=== PATIENT | male | born 1955 | race Caucasian/White ===

== ENCOUNTER 2022-01-19 14:55 | Inpatient (IN) | payer MEDICARE, OTHER ==
[2022-01-19] MEDS ORDERED: Haloperidol Lactate 5 MG/ML VIAL ONE (15:07)
[2022-01-19 15:52] LABS: #Basophils 0.1 thou/uL (0.0-0.2); #Eosinphils 0.1 thou/uL (0.0-0.7); #Lymphocytes 2.8 thou/uL (1.20-3.40); #Monocytes 0.9 thou/uL (0.11-0.59); #Neutrophils 6.2 thou/uL (1.40-6.50); %Basophils 0.7 % (0.0-1.0); %Eosinophils 1.1 % (0.0-10.0); %Lymphocytes 27.7 % (21.0-51.0); %Monocytes 8.7 % (0.0-10.0); %Neutrophils 61.8 % (42.0-75.0); Hemoglobin 16.9 g/dL (14.0-18.0); Mean Corpuscular HGB CONC 32.6 g/dL (32.0-36.0); Mean Corpuscular Hemoglobin 29.6 pg (27.0-31.0); Mean Corpuscular Volume 90.8 fL (78.0-98.0); Mean Platelet Volume 8.5 fL (7.4-10.4); Platelet Count 250 thou/uL (130-400); RBC Distribution Width 14.1 % (11.5-14.5); White Blood Cell (WBC) Count 10.1 thou/uL (4.8-10.8)
[2022-01-19 16:01] LABS: Amphetamine Detected (NotDetected); Barbiturates Screen Not Detected (NotDetected); Benzodiazepine Screen Not Detected (NotDetected); Cocaine Metabolite Screen Not Detected (NotDetected); Methadone Not Detected (NotDetected); Methamphetamine Detected (NotDetected); Opiate Screen Not Detected (NotDetected); Oxycodone Screen Not Detected (NotDetected); Phencyclidine (PCP) Not Detected (NotDetected); THC/Cannabinoid Screen Not Detected (NotDetected); Tricyclic Screen Not Detected (NotDetected)
[2022-01-19 16:06] LABS: ALT (SGPT) 138 U/L (8-55); AST (SGOT) 159 U/L (5-34); Acetaminophen Less than 10.0 mcg/mL (10.0-30.0); Albumin 4.6 g/dL (3.4-4.8); Alcohol Less than 10 mg/dL (Less than 10); Alkaline Phosphatase 146 U/L (40-110); Anion Gap 30 mmol/L (10-20); BUN (Urea Nitrogen) 20 mg/dL (8.4-25.7); Bilirubin, Total 1.3 mg/dL (0.2-1.2); CK (CPK) 267 U/L (30-200); Calc. Creatinine Clearance 0 mL/min (70-130); Calcium 10.5 mg/dL (7.8-10.44); Carbon Dioxide 13 mmol/L (23-31); Chloride 107 mmol/L (98-107); Estimated GFR 25; Glucose 141 mg/dL (80-115); Lipase 83 U/L (8-78); Potassium 4.3 mmol/L (3.5-5.1); Protein, Total 9.6 g/dL (5.8-8.1); Salicylate Less than 8.0 mg/dL (15.0-30.0); Sodium 146 mmol/L (136-145)
[2022-01-19 16:47] LABS: CKMB 8.1 ng/mL (0-6.6)
[2022-01-19] MEDS ORDERED: Cefepime 2 GM in Sodium Chloride 0.9% 100 ML IVPB SCH (17:28)
[2022-01-19] MEDS ORDERED: Ondansetron ODT 4 MG TAB PO PRN (17:30)
[2022-01-19] MEDS ORDERED: Senokot S 8.6-50 MG TAB PO PRN (17:30)
[2022-01-19] MEDS ORDERED: Acetaminophen 325 MG TAB PO PRN (17:30)
[2022-01-19] MEDS ORDERED: Ondansetron PF 4 MG/2 ML Vial IVP PRN (17:30)
[2022-01-19] MEDS ORDERED: Acetaminophen 650 MG Suppository PR PRN (17:30)
[2022-01-19] MEDS ORDERED: Sodium Chloride 0.9% 1,000 ML IV SCH (17:30)
[2022-01-19] MEDS ORDERED: Sodium Bicarbonate 150 MEQ in Dextrose 5% in Water 1,000 ML IV SCH (18:00)
[2022-01-19] MEDS ORDERED: Vancomycin Dose by Levels Sliding Scale (Wt 71-99) FS SCH (18:00)
[2022-01-19] MEDS ORDERED: Cefepime 2 GM VIAL ONE (18:14)
[2022-01-19] MEDS ORDERED: VANCOMYCIN 1.75 GM/500 ML BAG 1.75 GM in Premix Bag 1 BAG IVPB SCH (18:30)
[2022-01-19 18:37] VITALS: BMI 26.6
[2022-01-19] MEDS: Sodium Chloride 0.9% 1,000 ML IV SCH (18:57)
[2022-01-19 19:19] LABS: SARS-CoV-2 NAA Rapid Test DETECTED (NotDetected)
[2022-01-19 19:52] LABS: CKMB 27.8 ng/mL (0-6.6)
[2022-01-19] MEDS: Heparin 5,000 UNITS/ML VIAL SC SCH (20:47)
[2022-01-19 21:09] LABS: Bilirubin Negative (Negative); Blood, Urine 3+ (Negative); Clarity Extra Turbid (Clear); Glucose, Urine (Dipstick) Normal (Negative); Ketone, Urine Negative (Negative); Leukocyte 25 Leu/uL (Negative); Nitrite Negative (Negative); Protein, Urine (Dipstick) 50 mg/dL (Neg-Trace); RBC/HPF 21-50 HPF (0-3); Specific Gravity, Urine 1.027 (1.002-1.036); pH, Urine 5.5 (5.0-9.0)
[2022-01-19 21:10] LABS: Bacteria/HPF 4+ HPF (None Seen); Squamous Epithelial None Seen HPF (0-3)
[2022-01-19 21:48] LABS: Lactic Acid 2.9 mmol/L (0.5-2.2)
[2022-01-20] MEDS: Sodium Chloride 0.9% 1,000 ML IV SCH ×2 (02:58→09:18)
[2022-01-20 04:20] LABS: ALT (SGPT) 279 U/L (8-55); AST (SGOT) 609 U/L (5-34); Albumin 2.9 g/dL (3.4-4.8); Alkaline Phosphatase 100 U/L (40-110); Anion Gap 14 mmol/L (10-20); BUN (Urea Nitrogen) 24 mg/dL (8.4-25.7); Bilirubin, Total 1.2 mg/dL (0.2-1.2); Calc. Creatinine Clearance 48 mL/min (70-130); Calcium 7.8 mg/dL (7.8-10.44); Carbon Dioxide 17 mmol/L (23-31); Chloride 116 mmol/L (98-107); Estimated GFR 43; Globulin 3.3 g/dL (2.4-3.5); Glucose 148 mg/dL (80-115); Potassium 3.6 mmol/L (3.5-5.1); Protein, Total 6.2 g/dL (5.8-8.1); Sodium 143 mmol/L (136-145)
[2022-01-20 08:17] LABS: Hemoglobin 14.2 g/dL (14.0-18.0); Mean Corpuscular HGB CONC 31.7 g/dL (32.0-36.0); Mean Corpuscular Hemoglobin 28.6 pg (27.0-31.0); Mean Corpuscular Volume 90.4 fL (78.0-98.0); Mean Platelet Volume 9.3 fL (7.4-10.4); Platelet Count 75 thou/uL (130-400); RBC Distribution Width 14.2 % (11.5-14.5); Red Blood Cell (RBC) Count 4.95 mill/uL (4.70-6.10); White Blood Cell (WBC) Count 13.9 thou/uL (4.8-10.8)
[2022-01-20 08:19] LABS: #Basophils 0.1 thou/uL (0.0-0.2); #Lymphocytes 1.2 thou/uL (1.20-3.40); #Monocytes 0.6 thou/uL (0.11-0.59); %Basophils 0.5 % (0.0-1.0); %Eosinophils 0.3 % (0.0-10.0); %Lymphocytes 8.7 % (21.0-51.0); %Monocytes 4.5 % (0.0-10.0); %Neutrophils 86.1 % (42.0-75.0); Band 16 % (5-11); Lymphocytes 20 % (21-51); MDiff Complete? YES; Monocytes 2 % (0-10); Neutrophil 62 % (42-75); Platelet Morphology Comment Appears Decreased; Polychromasia SLIGHT = 2-3 cells (100X) (0-2/hpf)
[2022-01-20] MEDS: Heparin 5,000 UNITS/ML VIAL SC SCH ×2 (09:18→20:25)
[2022-01-20] MEDS: Pantoprazole 40 MG VIAL IVP SCH (09:19)
[2022-01-20] MEDS ORDERED: HumaLOG 300 UNITS/3 ML VIAL SC PRN ×2 (15:18)
[2022-01-20] MEDS ORDERED: Dextrose 5% in Water 1,000 ML IV PRN (15:18)
[2022-01-20] MEDS ORDERED: Dextrose 50% Abboject 50 ML SYRINGE SLOW IVP PRN (15:18)
[2022-01-20] MEDS ORDERED: Cefepime 1 GM in Sodium Chloride 0.9% 100 ML IVPB SCH (18:00)
[2022-01-20 20:16] LABS: Vancomycin, Random 6.1 ug/mL (See Comment)
[2022-01-20] MEDS ORDERED: VANCOMYCIN 1.25 GM/250 ML BAG 1.25 GM in Premix Bag 1 BAG IVPB SCH (22:00)
[2022-01-21 05:57] LABS: PTT 42.8 sec (22.9-36.1); Prothrombin Time 23.5 sec (12.0-14.7)
[2022-01-21 06:12] LABS: #Basophils 0.1 thou/uL (0.0-0.2); #Lymphocytes 1.8 thou/uL (1.20-3.40); #Monocytes 0.7 thou/uL (0.11-0.59); #Neutrophils 7.1 thou/uL (1.40-6.50); %Basophils 0.7 % (0.0-1.0); %Eosinophils 0.2 % (0.0-10.0); %Lymphocytes 18.5 % (21.0-51.0); %Monocytes 7.2 % (0.0-10.0); %Neutrophils 73.3 % (42.0-75.0); Hemoglobin A1c 6.1 % (4.0-6.0); Mean Corpuscular HGB CONC 31.4 g/dL (32.0-36.0); Mean Corpuscular Hemoglobin 28.2 pg (27.0-31.0); Mean Corpuscular Volume 89.9 fL (78.0-98.0); Mean Platelet Volume 10.3 fL (7.4-10.4); Platelet Count 52 thou/uL (130-400); Platelet Morphology Comment Appears Decreased; RBC Distribution Width 14.2 % (11.5-14.5); Red Blood Cell (RBC) Count 4.95 mill/uL (4.70-6.10); White Blood Cell (WBC) Count 9.6 thou/uL (4.8-10.8)
[2022-01-21 06:15] LABS: Anion Gap 11 mmol/L (10-20); BUN (Urea Nitrogen) 14 mg/dL (8.4-25.7); Calc. Creatinine Clearance 102 mL/min (70-130); Calcium 7.8 mg/dL (7.8-10.44); Carbon Dioxide 19 mmol/L (23-31); Chloride 107 mmol/L (98-107); Estimated GFR 92; Glucose 109 mg/dL (80-115); Potassium 3.5 mmol/L (3.5-5.1); Sodium 133 mmol/L (136-145)
[2022-01-21 06:16] LABS: ALT (SGPT) 1863 U/L (8-55); AST (SGOT) 2965 U/L (5-34); Albumin 2.8 g/dL (3.4-4.8); Alkaline Phosphatase 100 U/L (40-110); Bilirubin, Total 1.7 mg/dL (0.2-1.2); CK (CPK) 1978 U/L (30-200); Protein, Total 5.9 g/dL (5.8-8.1)
[2022-01-21] MEDS ORDERED: FLU VACC QS2022-23(6MOS UP)/PF 60 MCG/0.5 ML SYRINGE IM ONE (09:00)
[2022-01-21] MEDS: Cefepime 2 GM in Sodium Chloride 0.9% 100 ML IVPB SCH ×2 (09:30→21:28)
[2022-01-21] MEDS: Lactated Ringer's 1,000 ML IV SCH ×3 (09:30→22:09)
[2022-01-21] MEDS: Pantoprazole 40 MG VIAL IVP SCH (09:31)
[2022-01-21] MEDS: Heparin 5,000 UNITS/ML VIAL SC SCH (09:31)
[2022-01-21] MEDS ORDERED: Iopamidol 370 76% 100 ML VIAL ONE (09:37)
[2022-01-21 12:15] LABS: HBCM Index 0.07 S/CO (0-0.79); HBSAg Index 0.37 S/CO (0-0.99); Hep A IgM AB Non-Reactive (NonReactive); Hep A IgM S/CO 0.65 S/CO (0-0.79); Hep B Surf Ag Non-Reactive S/CO (NonReactive); Hepatitis B Core IgM Abs Non-Reactive (NonReactive)
[2022-01-21 12:20] LABS: Hep C IgG Ab Reflex HepC Qnt (NonReactive); Hep C Index 14.89 S/CO (0-0.79)
[2022-01-21] MEDS ORDERED: Phytonadione 10 MG/ML AMP SLOW IVP SCH (14:15)
[2022-01-21] MEDS ORDERED: Phytonadione 10 MG in Sodium Chloride 0.9% 50 ML IVPB SCH (14:30)
[2022-01-21] MEDS ORDERED: Thiamine HCl 200 MG/2 ML VIAL SLOW IVP SCH (14:30)
[2022-01-21] MEDS: VANCOMYCIN 1.75 GM/500 ML BAG 1.75 GM in Premix Bag 1 BAG IVPB SCH (22:17)
[2022-01-22] MEDS: Cefepime 2 GM in Sodium Chloride 0.9% 100 ML IVPB SCH (09:49)
[2022-01-22] MEDS: Thiamine HCl 200 MG/2 ML VIAL SLOW IVP SCH (09:50)
[2022-01-22] MEDS: Lactated Ringer's 1,000 ML IV SCH ×2 (09:51→21:34)
[2022-01-22] MEDS: Multivitamin W/ Minerals 1 TAB PO SCH (09:51)
[2022-01-22] MEDS: Folic Acid 1 MG TAB PO SCH (09:51)
[2022-01-22] MEDS: Pantoprazole 40 MG VIAL IVP SCH (09:52)
[2022-01-22 09:54] LABS: #Eosinphils 0.4 thou/uL (0.0-0.7); #Lymphocytes 1.8 thou/uL (1.20-3.40); #Monocytes 0.9 thou/uL (0.11-0.59); #Neutrophils 4.5 thou/uL (1.40-6.50); %Basophils 0.1 % (0.0-1.0); %Eosinophils 5.2 % (0.0-10.0); %Lymphocytes 23.8 % (21.0-51.0); %Monocytes 11.6 % (0.0-10.0); %Neutrophils 59.2 % (42.0-75.0); Hemoglobin 14.3 g/dL (14.0-18.0); Mean Corpuscular HGB CONC 31.7 g/dL (32.0-36.0); Mean Corpuscular Hemoglobin 28.7 pg (27.0-31.0); Mean Corpuscular Volume 90.4 fL (78.0-98.0); Mean Platelet Volume 10.3 fL (7.4-10.4); Platelet Count 55 thou/uL (130-400); RBC Distribution Width 14.1 % (11.5-14.5); Red Blood Cell (RBC) Count 4.99 mill/uL (4.70-6.10); White Blood Cell (WBC) Count 7.7 thou/uL (4.8-10.8)
[2022-01-22 10:17] LABS: ALT (SGPT) 1409 U/L (8-55); AST (SGOT) 1238 U/L (5-34); Albumin 2.9 g/dL (3.4-4.8); Alkaline Phosphatase 97 U/L (40-110); Anion Gap 10 mmol/L (10-20); BUN (Urea Nitrogen) 9 mg/dL (8.4-25.7); Bilirubin, Total 2.2 mg/dL (0.2-1.2); CK (CPK) 483 U/L (30-200); Calc. Creatinine Clearance 125 mL/min (70-130); Calcium 8.7 mg/dL (7.8-10.44); Carbon Dioxide 23 mmol/L (23-31); Chloride 109 mmol/L (98-107); Estimated GFR 100; Glucose 107 mg/dL (80-115); Potassium 3.6 mmol/L (3.5-5.1); Protein, Total 6.1 g/dL (5.8-8.1); Sodium 138 mmol/L (136-145)
[2022-01-22] MEDS: Phytonadione 10 MG in Sodium Chloride 0.9% 50 ML IVPB SCH (11:17)
[2022-01-22 22:42] LABS: INR-International Normal Ratio 1.2; Prothrombin Time 15.7 sec (12.0-14.7); Vancomycin, Trough 4.9 ug/mL
[2022-01-22] MEDS: VANCOMYCIN 1.75 GM/500 ML BAG 1.75 GM in Premix Bag 1 BAG IVPB SCH (23:25)
[2022-01-22] MEDS: Vancomycin 1.5 GRAM/300 ML BAG 1.5 GM in Premix Bag 1 BAG IVPB SCH (23:28)
[2022-01-23] MEDS: Lactated Ringer's 1,000 ML IV SCH ×2 (02:02→09:45)
[2022-01-23] MEDS: Multivitamin W/ Minerals 1 TAB PO SCH ×2 (09:44→10:15)
[2022-01-23] MEDS: Folic Acid 1 MG TAB PO SCH ×2 (09:44→10:14)
[2022-01-23] MEDS: Phytonadione 10 MG in Sodium Chloride 0.9% 50 ML IVPB SCH ×2 (09:45→09:57)
[2022-01-23] MEDS: Thiamine HCl 200 MG/2 ML VIAL SLOW IVP SCH ×2 (09:46→10:16)
[2022-01-23] MEDS: Pantoprazole 40 MG VIAL IVP SCH ×2 (09:58→10:16)
[2022-01-23] MEDS: Vancomycin 1.5 GRAM/300 ML BAG 1.5 GM in Premix Bag 1 BAG IVPB SCH ×2 (11:54→23:16)
[2022-01-23 12:49] LABS: #Eosinphils 0.5 thou/uL (0.0-0.7); #Lymphocytes 1.8 thou/uL (1.20-3.40); #Monocytes 0.9 thou/uL (0.11-0.59); #Neutrophils 4.8 thou/uL (1.40-6.50); %Basophils 0.4 % (0.0-1.0); %Eosinophils 6.1 % (0.0-10.0); %Lymphocytes 21.9 % (21.0-51.0); %Monocytes 11.8 % (0.0-10.0); %Neutrophils 59.8 % (42.0-75.0); Hemoglobin 13.6 g/dL (14.0-18.0); Mean Corpuscular HGB CONC 32.1 g/dL (32.0-36.0); Mean Corpuscular Hemoglobin 29.1 pg (27.0-31.0); Mean Corpuscular Volume 90.4 fL (78.0-98.0); Mean Platelet Volume 10.9 fL (7.4-10.4); Platelet Count 77 thou/uL (130-400); RBC Distribution Width 13.9 % (11.5-14.5); Red Blood Cell (RBC) Count 4.66 mill/uL (4.70-6.10)
[2022-01-23 12:58] LABS: INR-International Normal Ratio 1.1; Prothrombin Time 14.6 sec (12.0-14.7)
[2022-01-23 13:02] LABS: ALT (SGPT) 848 U/L (8-55); AST (SGOT) 447 U/L (5-34); Albumin 2.8 g/dL (3.4-4.8); Alkaline Phosphatase 89 U/L (40-110); Anion Gap 8 mmol/L (10-20); BUN (Urea Nitrogen) 9 mg/dL (8.4-25.7); Bilirubin, Direct 0.6 mg/dL (0.1-0.3); Bilirubin, Total 1.4 mg/dL (0.2-1.2); CK (CPK) 167 U/L (30-200); Calc. Creatinine Clearance 123 mL/min (70-130); Calcium 8.8 mg/dL (7.8-10.44); Carbon Dioxide 26 mmol/L (23-31); Chloride 105 mmol/L (98-107); Estimated GFR 99; Glucose 137 mg/dL (80-115); Potassium 3.4 mmol/L (3.5-5.1); Protein, Total 5.8 g/dL (5.8-8.1); Sodium 136 mmol/L (136-145)
[2022-01-24 04:57] LABS: #Eosinphils 0.6 thou/uL (0.0-0.7); #Lymphocytes 2.4 thou/uL (1.20-3.40); #Monocytes 1.2 thou/uL (0.11-0.59); #Neutrophils 5.8 thou/uL (1.40-6.50); %Basophils 0.4 % (0.0-1.0); %Eosinophils 5.7 % (0.0-10.0); %Lymphocytes 24.2 % (21.0-51.0); %Monocytes 11.8 % (0.0-10.0); %Neutrophils 57.9 % (42.0-75.0); Mean Corpuscular HGB CONC 32.5 g/dL (32.0-36.0); Mean Corpuscular Hemoglobin 29.3 pg (27.0-31.0); Mean Corpuscular Volume 90.3 fL (78.0-98.0); Mean Platelet Volume 9.8 fL (7.4-10.4); Platelet Count 93 thou/uL (130-400); RBC Distribution Width 13.7 % (11.5-14.5); Red Blood Cell (RBC) Count 4.77 mill/uL (4.70-6.10); White Blood Cell (WBC) Count 10.1 thou/uL (4.8-10.8)
[2022-01-24 05:12] LABS: Anion Gap 11 mmol/L (10-20); BUN (Urea Nitrogen) 10 mg/dL (8.4-25.7); CK (CPK) 133 U/L (30-200); Calc. Creatinine Clearance 126 mL/min (70-130); Carbon Dioxide 24 mmol/L (23-31); Chloride 107 mmol/L (98-107); Estimated GFR 100; Glucose 107 mg/dL (80-115); Iron Binding Capacity, Total 361 mcg/dL (261-462); Potassium 3.6 mmol/L (3.5-5.1); Sodium 138 mmol/L (136-145)
[2022-01-24 07:05] LABS: ALT (SGPT) 669 U/L (8-55); AST (SGOT) 260 U/L (5-34); Alkaline Phosphatase 87 U/L (40-110); Bilirubin, Direct 0.4 mg/dL (0.1-0.3); Bilirubin, Total 0.9 mg/dL (0.2-1.2); Protein, Total 6.2 g/dL (5.8-8.1)
[2022-01-24] MEDS: Multivitamin W/ Minerals 1 TAB PO SCH (10:16)
[2022-01-24] MEDS: Pantoprazole 40 MG VIAL IVP SCH (10:16)
[2022-01-24] MEDS: Folic Acid 1 MG TAB PO SCH (10:16)
[2022-01-24] MEDS: Thiamine HCl 200 MG/2 ML VIAL SLOW IVP SCH (10:16)
[2022-01-24] MEDS ORDERED: Doxycycline 100 MG CAP PO SCH ×2 (11:45→21:00)
[2022-01-24 11:54] VITALS: BP 133/76; TEMP 97.3
[2022-01-25 14:13] LABS: HCV RNA, log10 5.862 (.); Hep C PCR-Quant 728000 IU/mL (.)
[2022-01-26 12:13] LABS: ANA Symphony (Qualitative) Negative (Negative); ANA Symphony (Quantitative) 0.4 Ratio (< 0.7 Negative)
[2022-01-26 12:43] LABS: EliA Vaculitis New Method **** NEW METHOD ****; Mitochondrial Ab 3.4 U/mL (<4 Negative)
== END 2022-01-24 15:11 | disposition home or self-care (01) | DRG 917 ==
LOC: ERS 14:55 → ERHOLD 17:21 → CCU 19:47 → IMCU/EMU 01-20 07:24 → 2NO 01-21 23:26
PROVIDERS: ADMIT Hospitalist; ATTEND Hospitalist
PROC: 8E0ZXY6 Isolation (ICD-10-PCS; principal; 2022-01-19)
DX: T43.621A Poisoning by amphetamines, accidental (unintentional), initial encounter (principal); G92.8 Other toxic encephalopathy; I21.A1 Myocardial infarction type 2; U07.1 COVID-19; K72.00 Acute and subacute hepatic failure without coma; J96.01 Acute respiratory failure with hypoxia; T67.01XA Heatstroke and sunstroke, initial encounter; E87.20 Acidosis, unspecified; N17.9 Acute kidney failure, unspecified; M62.82 Rhabdomyolysis; D68.4 Acquired coagulation factor deficiency; R78.81 Bacteremia; E87.1 Hypo-osmolality and hyponatremia; F15.129 Other stimulant abuse with intoxication, unspecified; B19.20 Unspecified viral hepatitis C without hepatic coma; K74.60 Unspecified cirrhosis of liver; R77.8 Other specified abnormalities of plasma proteins; E86.0 Dehydration; R73.9 Hyperglycemia, unspecified; F32.A Depression, unspecified; F41.9 Anxiety disorder, unspecified; F19.10 Other psychoactive substance abuse, uncomplicated; R31.9 Hematuria, unspecified; B95.7 Other staphylococcus as the cause of diseases classified elsewhere; G89.29 Other chronic pain; M54.9 Dorsalgia, unspecified; D69.6 Thrombocytopenia, unspecified; X30.XXXA Exposure to excessive natural heat, initial encounter; Z88.0 Allergy status to penicillin; Z88.2 Allergy status to sulfonamides; Z86.14 Personal history of Methicillin resistant Staphylococcus aureus infection; Z90.49 Acquired absence of other specified parts of digestive tract; Z98.890 Other specified postprocedural states; Z87.891 Personal history of nicotine dependence; Z78.1 Physical restraint status
CPT/HCPCS: 36415; 36416; 51702; 70360; 70450; 71045; 74170; 76705; 80048; 80053; 80074; 80076; 80202; 80306; 80307; 81003; 81015; 82105; 82140; 82550; 82553; 82728; 83036; 83516; 83550; 83605; 83690; 84443; 84484; 85025; 85610; 85730; 86015; 86038; 86225; 87040; 87076; 87077; 87086; 87149; 87186; 87522; 87902; 93005; 94760; C9113; J0692; J1630; J1644; J3370; J3411; J3430; J3490; J7050; J7070; J7120; Q9967; U0002